=== PATIENT | female | born 1975 | race Caucasian/White ===

== ENCOUNTER 2018-06-01 08:27 | Inpatient (IN) ==
[2018-06-01] MEDS ORDERED: Metoprolol Tartrate 25 MG Tablet PO SCH (08:57)
[2018-06-01] MEDS ORDERED: Chlorhexidine Gluconate 2% 1 Pack (2 Cloths) TOPICAL SCH (08:57)
[2018-06-01] MEDS ORDERED: Sodium Chlor 0.9% Inj 500 ML IV.SIG SCH (09:00)
[2018-06-01] MEDS ORDERED: ceFAZolin 2 GM Premix Inj 2 GM/100 ML BAG IV.SIG ONE (09:07)
[2018-06-01] MEDS ORDERED: Famotidine PF Inj 20 MG/2 ML Vial ONE (09:32)
[2018-06-01 09:34] LABS: Baso # (Auto) 0.1 th/mm3 (0.0-0.2); Eos % (Auto) 0.5 % (0.0-4.0); Hematocrit 27.8 % (35.0-46.0); Hemoglobin 8.6 gm/dL (11.6-15.3); Lymph # (Auto) 0.9 th/mm3 (1.0-4.8); Mean Corpuscular HGB Conc 31.1 % (32.0-36.0); Mean Corpuscular Hemoglobin 22.3 pg (27.0-34.0); Mean Corpuscular Volume 71.6 fL (80.0-100.0); Mean Platelet Volume 8.2 fL (7.0-11.0); Mono # (Auto) 0.4 th/mm3 (0.0-0.9); Mono % (Auto) 7.5 % (0.0-8.0); Neut # (Auto) 3.8 th/mm3 (1.8-7.7); Platelet Count 369 th/mm3 (150-450); Red Blood Count 3.88 mil/mm3 (4.00-5.30); Red Cell Distribution Width 15.8 % (11.6-17.2); White Blood Count 5.1 th/mm3 (4.0-11.0)
[2018-06-01 09:50] LABS: Calcium 8.9 mg/dL (8.5-10.1); Carbon Dioxide 22.6 meq/L (21.0-32.0); Potassium 3.7 meq/L (3.5-5.1)
[2018-06-01] MEDS ORDERED: ceFAZolin 2 GM/NS 100 ML IV IV.SIG SCH ×2 (10:00)
[2018-06-01] MEDS ORDERED: Bupivacaine/Epinephrine Inj 0.25% 50 ML Vial ONE (10:19)
[2018-06-01] MEDS ORDERED: Neostigmine Inj 5 MG/5 ML Syringe IV.PUSH ONE (10:38)
[2018-06-01] MEDS ORDERED: Lidocaine PF 1% Inj 5 ML Syringe INFILTRATN ONE (10:38)
[2018-06-01] MEDS ORDERED: Glycopyrrolate Inj 1 MG/5 ML Syringe IV.PUSH ONE (10:38)
[2018-06-01] MEDS ORDERED: Succinylcholine Inj 100 MG/5 ML Syringe IV.PUSH ONE (10:38)
[2018-06-01] MEDS ORDERED: Levofloxacin 500 mg Premix Inj 500 MG/100 ML PIGGYBACK IV.SIG ONE (11:13)
[2018-06-01] MEDS ORDERED: Bupivacaine PF 0.5% Inj 30 ML Vial ONE (13:13)
[2018-06-01] MEDS ORDERED: Bupivacaine Liposomal PF 1.3% Inj 20 ML Vial ONE (13:14)
--- NOTE | 2018-06-01 13:52 | MP ---
cc: Vasu Chiang MD DATE OF OPERATION: 06/01/2018 DATE OF PROCEDURE: 06/01/2018 PREOPERATIVE DIAGNOSIS: Sigmoid colon cancer. POSTOPERATIVE DIAGNOSIS: Sigmoid colon cancer. PROCEDURE PERFORMED: Rigid sigmoidoscopy. SURGEON: Vasu Chiang MD ANESTHESIA: General endotracheal. COMPLICATIONS: None. INDICATIONS FOR PROCEDURE: Ms. Kebede is a very pleasant 43-year-old female; reports she has sigmoid colon cancer. She is undergoing a laparoscopic-assisted low anterior resection by Dr. Krunal Milian. He asked me to perform a rigid sigmoidoscopy to assist with the anastomosis. Please see Dr. Milian's note for the dictation regarding the laparoscopic procedure. DETAILS OF PROCEDURE: The patient was in the operating room with Dr. Milian under general anesthesia. She was in the lithotomy position with stirrups. The perineum was inspected. No gross abnormalities were noted other than some minor external hemorrhoids. Finger digital exam of the rectum revealed no palpable masses. Rigid sigmoidoscope was then inserted and insufflated with air. We went all the way up to the staple line where Dr. Milian had transected the sigmoid colon. The staple line was intact without any evidence of bleeding. There was a small amount of liquid stool within the rectal vault, which was suctioned out. Once we did this, we removed it. An 29 EEA was introduced and then gently brought up into the staple line area where Dr. Milian could feel it. The spike was then deployed and it was attached to the anvil. It was then retracted back with the orange marker within the green zone. The stapler was then fired and held in place for 10 seconds. The stapler was then removed without any difficulty. Staple was checked and there were two intact donuts circumferentially. The rigid sigmoidoscope was then reintroduced. Using direct insufflation, we were able to go up and visualize the staple line. There was a small amount of oozing noted, but no gross bleeding. Dr. Milian checked the staple lines internally. There was no evidence of air bubble leakage. The rigid sigmoidoscope was then removed. I then left the room and left the care of the patient of Dr. Krunal Milian. Please see his operative note for details. Vasu MD SAGAR Acevedo/rusty , 01:14 PM , 01:20 PM
[2018-06-01] MEDS ORDERED: Naloxone Inj 0.4 MG/ML Vial IV.PUSH PRN ×2 (14:06→14:10)
[2018-06-01] MEDS ORDERED: Post-op Orders (for Pharmacy) OTHER ONE (14:06)
[2018-06-01] MEDS ORDERED: Bisacodyl 10 MG Supp RECTAL PRN (14:06)
[2018-06-01] MEDS ORDERED: HYDROmorphone PCA Inj 6 MG/30 ML PCA.VIAL PCA PRN (14:10)
[2018-06-01] MEDS ORDERED: *morphine SULFATE 4 MG/ML PERIprocedure ONLY ONE ×2 (14:12→14:20)
[2018-06-01] MEDS ORDERED: fentaNYL Citrate Inj 100 MCG/2 ML Ampul ONE ×2 (14:29)
[2018-06-01] MEDS ORDERED: Morphine Inj 4 MG/ML Vial ONE (14:30)
[2018-06-01] MEDS: Pantoprazole Inj 40 MG Vial IV.PUSH SCH (16:31)
--- NOTE | 2018-06-01 20:16 | MP ---
cc: Krunal Milian MD, Harry MD DATE OF OPERATION: 06/01/2018 PREOPERATIVE DIAGNOSIS: Colon cancer, mid sigmoid colon. POSTOPERATIVE DIAGNOSIS: Colon cancer, mid sigmoid colon. PROCEDURE PERFORMED: Laparoscopic-assisted sigmoid low anterior resection for colon cancer. ANESTHESIA: General. SURGEON: Krunal Milian MD WARP TRUCKER: Vasu Chiang MD INDICATIONS: This is a 43-year-old female who has had some abdominal discomforts recently had a colonoscopy by Dr. Anderson, finding a sigmoid adenocarcinoma. Plans were made for above. DESCRIPTION OF PROCEDURE: The patient was taken to the operating room and placed in supine position. After anesthesia, her abdomen was prepped with Betadine. She was in the stirrups in modified lithotomy position. Timeout was done. She was given preoperative antibiotics. She had an adequate prep for her colonoscopy and for this procedure. She was given and Entereg preoperatively as well. We made a horizontal incision in the left lower quadrant and dissected down through Waldo fascia down to the anterior abdominal wall fascia, which was incised in a horizontal fashion. A portion of the rectus muscle fibers was split. The GelPort was then placed. A 5 mm port was placed in the right lower quadrant and a 5 mm in the umbilicus on the left side. We could palpate the tumor in the midsigmoid area through our GelPort site. We were able to dissect with laparoscopic assistance the mesentery down with the Harmonic scalpel all the way down to the peritoneal reflection. We were able to visualize the ureter quite easily because of the patient's body habitus. We freed up a portion of the distal colon. Once this was freed up, we then did some dissection through the GelPort. We were able to get about 8 cm proximal to the tumor and this was using the GI stapling device. Harmonic scalpel was then used to mobilize the mesentery all the way down to the root of the mesentery and the left colic vessels. The large vessels were then tied off with 0 Vicryl ties. We dissected all the way down to the mesentery, clamping and tying with Vicryl ties. On the smaller vessels, we used the Harmonic scalpel. Once this was freed all the way up to the peritoneal reflection, we were able use the contour stapler and separate the colon. With this, we had about 8-9 cm distal margins and 8 cm proximal. It was marked with a suture at the proximal end and passed off the field. We then used the sizers and used a 29 sizer in the proximal bowel. The staple line was removed. There was a good adequate blood supply. We then placed the anvil to the EEA stapling device #29 and stitched this in with a 3-0 Prolene. The anvil was then brought down to the pelvis with no tension. Dr. Chiang went down below and did a rigid sigmoidoscopy. See his separate operative note. The staple line could be seen. It was intact on the distal segment. Using the EEA, right through the staple line, we connected the anvil to the EEA stapler and this was fired in the typical fashion. Dr. Chiang checked the donuts and there were adequate donut margins. We then filled the pelvis with air and Dr. Chiang did a rigid sigmoidoscopy up to the anastomosis and could see the staple lines and pumped in some air and there was no leakage circumferentially. This air was then removed. We then draped the omentum down around the anastomosis. We did visualize and palpate the liver with a hand through the GelPort and also visually with the camera. I did not see any surface lesions. It was noted that her uterus was normal. Right and left ovary were normal. Her appendix was normal. The cecum appeared normal as well. No other growth pathology seen. The trocars were removed. The GelPort was removed. The peritoneum was closed with a 3-0 Vicryl and then the fascia was reapproximated with a #1 PDS in a running fashion. The skin at all 3 sites was then closed with a 4-0 Vicryl. The YOUSUF dressing was applied to the larger wound and Band-Aids to the smaller wounds. The patient tolerated the procedure well. Estimated blood loss was less than 30 mL. Returned to the recovery room without any immediate postop complications. MD MARGOTH Gould/juanis , 04:47 PM , 04:59 PM
[2018-06-01] MEDS ORDERED: Senna/Docusate Sodium 8.6/50 MG Tablet PO SCH (21:00)
[2018-06-02] MEDS: Pantoprazole Inj 40 MG Vial IV.PUSH SCH (15:28)
--- NOTE | 2018-06-02 18:24 | P.PNGS ---
Subjective Patient reports: feels better, pain is less, no flatus, no bowel movement Physical Exam Vital signs: Vital Signs 06/01/18 20:00 06/02/18 00:00 06/02/18 04:00 Temperature 97.7 F 97.6 F 98.0 F Pulse Rate 55 L 69 74 Respiratory Rate 16 16 16 Blood Pressure 108/57 L 104/58 L 108/59 L Pulse Oximetry 100 100 100 06/02/18 08:00 06/02/18 12:00 06/02/18 16:00 Temperature 97.3 F L 97.8 F 97.7 F Pulse Rate 70 62 84 Respiratory Rate 17 17 17 Blood Pressure 110/52 L 105/51 L 102/52 L Pulse Oximetry 100 100 100 Intake & Output 06/01/18 06/02/18 06/02/18 18:59 06:59 18:59 Intake Total 2500 / 2500 1480 / 1480 1000 / 1000 Output Total 500 / 500 1750 / 1750 Balance 1999 / 1999 -270 / -270 1000 / 1000 Weight 67 kg 67.2 kg Intake: IV 1000 / 1000 1000 / 1000 LR 1000 mL Inj 1,000 ML @ 100 1000 / 1000 1000 / 1000 mls/hr IV.CONT .Q10H [facility] Rx#: [id number] LR 1000 mL Inj 1,000 ML @ 30 0 / 0 mls/hr IV.SIG .Q24H [facility] Rx#: [id number] Oral 0 / 0 480 / 480 Anesthesia Amount 2500 / 2500 Output: Urine 1750 / 1750 Estimated Blood Loss 50 / 50 Urine Amount (Catheter) 450 / 450 Indwelling Urethral Catheter 450 / 450 Other: Weight On Admission 60.9 kg - Constitutional no acute distress - Routine Respiratory Exam Present: CTA bilaterally - Routine Cardiovascular Exam Present: RRR - Routine Abdominal Exam Present: soft Comments: postop pain, inc c/d/i - Urinary Catheter Management Indwelling Urethral Catheter Cath placed during this visit: yes Reason for continuing: Hourly intake/output Insertion date: 06/01/18 Assessment and Plan - Assessment (1) Colonic obstruction Code(s): K56.609 - Unspecified intestinal obstruction, unspecified as to partial versus complete obstruction Status: Acute - Plan 43yo female s/p lap assisted sigmoid colectomy, stable. 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
[2018-06-03] MEDS: Pantoprazole Inj 40 MG Vial IV.PUSH SCH (15:24)
--- NOTE | 2018-06-03 17:06 | P.PN ---
Subjective Interval history: Some nausea today; tolerating clear liquids Physical Exam Vital signs: Vital Signs 06/02/18 20:00 06/03/18 00:00 06/03/18 04:00 Temperature 98 F 97.9 F 97.9 F Pulse Rate 108 H 80 75 Respiratory Rate 20 18 18 Blood Pressure 103/64 100/55 L 107/55 L Pulse Oximetry 100 97 98 06/03/18 08:00 06/03/18 12:00 Temperature 97.9 F 97.7 F Pulse Rate 95 H 90 Respiratory Rate 17 17 Blood Pressure 112/58 L 105/56 L Pulse Oximetry 98 98 Intake & Output 06/02/18 06/03/18 06/03/18 18:59 06:59 18:59 Intake Total 2300 / 2300 2000 / 2000 1000 / 1000 Output Total 6450 / 6450 1450 / 1450 300 / 300 Balance -4150 / -4150 550 / 550 700 / 700 Weight 69.2 kg Intake: IV 1000 / 1000 2000 / 2000 1000 / 1000 LR 1000 mL Inj 1,000 ML @ 100 1000 / 1000 2000 / 2000 1000 / 1000 mls/hr IV.CONT .Q10H [facility] Rx#: [id number] LR 1000 mL Inj 1,000 ML @ 30 0 / 0 mls/hr IV.SIG .Q24H [facility] Rx#: [id number] Oral 1300 / 1300 Output: Urine 6450 / 6450 300 / 300 Urine Amount (Catheter) 1450 / 1450 Indwelling Urethral Catheter 1450 / 1450 - Constitutional no acute distress - Routine Respiratory Exam Present: CTA bilaterally - Routine Abdominal Exam Present: soft, wound (Dressing clean and dry; mariano intact with good suction) - Urinary Catheter Management Indwelling Urethral Catheter Cath placed during this visit: yes, but has since been removed by the nurse Reason for continuing: Not indwelling catheter Insertion date: 06/01/18 Removal date: 06/03/18 Removal time: 06:30 Results - Labs CBC & Chem 7: 06/01/18 09:20 06/01/18 09:20 Assessment and Plan - Assessment (1) Colonic obstruction Code(s): K56.609 - Unspecified intestinal obstruction, unspecified as to partial versus complete obstruction Status: Acute Plan: Advance to full liquid diet; continue ITALIAN TUTOR and add oral pain medicine. Patient encouraged to transition in the next day or so to oral pain meds. Await return of bowel function. - Plan Discussed Condition With: Patient Nurse Robe - Attending Attestation I attest that I had a [id number] encounter with the patient on the same day, and personally performed and documented my assessment and findings in the medical record. The following services were provided during this hospital visit: Chart data review, vital sign assessments/reviewing monitor data Review of consultation notes if present Medication orders/review and/or management Ordering and/or reviewing lab tests Ordering and/or interpreting/reviewing x-rays and/or diagnostic studies Care of the patient and discussion of the patient with the care team Documentation time To help prompt me to consider important information that might be impacting today's encounter and assessment, Information from prior notes written by myself or my colleagues may have been "brought forward/copy and pasted" into today's note.
--- NOTE | 2018-06-04 11:47 | P.PNGS ---
Subjective Patient reports: feels better, flatus Interval history: DAILY PROGRESS NOTE FOR SURGICAL ATTENDING, DR. BRANDO MONTEZ Passing flatus Wants more to eat wants her anxiety medicine adjusted Pain control adequate Physical Exam Vital signs: Vital Signs 06/03/18 12:00 06/03/18 16:00 06/03/18 20:00 Temperature 97.7 F 98.7 F 97.9 F Pulse Rate 90 89 89 Respiratory Rate 17 17 20 Blood Pressure 105/56 L 102/66 112/58 L Pulse Oximetry 98 98 97 06/04/18 00:00 06/04/18 04:00 06/04/18 11:39 Temperature 98.1 F 97.9 F 98.1 F Pulse Rate 79 72 74 Respiratory Rate 18 18 19 Blood Pressure 119/69 107/65 112/63 Pulse Oximetry 97 98 100 Intake & Output 06/03/18 06/04/18 06/04/18 18:59 06:59 18:59 Intake Total 1050 / 1050 1480 / 1480 0 / 0 Output Total 300 / 300 1750 / 1750 Balance 750 / 750 -270 / -270 0 / 0 Weight 66.3 kg Intake: IV 1050 / 1050 1000 / 1000 0 / 0 LR 1000 mL Inj 1,000 ML @ 84 1050 / 1050 1000 / 1000 mls/hr IV.CONT .[id number] [facility] Rx# :[id number] LR 1000 mL Inj 1,000 ML @ 30 0 / 0 mls/hr IV.SIG .Q24H [facility] Rx#: [id number] Oral 480 / 480 Output: Urine 300 / 300 1750 / 1750 Narrative: Patient alert oriented sitting up in bed Abdomen soft mild soreness left lower quadrant mariano dressing intact Moves all extremities well ambulating in room and ho - Additional findings Additional findings: Laboratory Last Values WBC 5.1 th/mm3 (4.0-11.0) 06/01/18 09:20 RBC 3.88 mil/mm3 (4.00-5.30) L 06/01/18 09:20 Hgb 8.6 gm/dL (11.6-15.3) L 06/01/18 09:20 Hct 27.8 % (35.0-46.0) L 06/01/18 09:20 MCV 71.6 fL (80.0-100.0) L 06/01/18 09:20 MCH 22.3 pg (27.0-34.0) L 06/01/18 09:20 MCHC 31.1 % (32.0-36.0) L 06/01/18 09:20 RDW 15.8 % (11.6-17.2) 06/01/18 09:20 Plt Count 369 th/mm3 (150-450) 06/01/18 09:20 MPV 8.2 fL (7.0-11.0) 06/01/18 09:20 Neut % (Auto) 74.0 % (16.0-70.0) H 06/01/18 09:20 Lymph % (Auto) 17.0 % (9.0-44.0) 06/01/18 09:20 [place] % (Auto) 7.5 % (0.0-8.0) 06/01/18 09:20 Eos % (Auto) 0.5 % (0.0-4.0) 06/01/18 09:20 Baso % (Auto) 1.0 % (0.0-2.0) 06/01/18 09:20 Neut # (Auto) 3.8 th/mm3 (1.8-7.7) 06/01/18 09:20 Lymph # (Auto) 0.9 th/mm3 (1.0-4.8) L 06/01/18 09:20 [place] # (Auto) 0.4 th/mm3 (0.0-0.9) 06/01/18 09:20 Eos # (Auto) 0.0 th/mm3 (0.0-0.4) 06/01/18 09:20 Baso # (Auto) 0.1 th/mm3 (0.0-0.2) 06/01/18 09:20 WBC Differential . 06/01/18 09:20 Differential Comment Auto diff final 06/01/18 09:20 Sodium 139 meq/L (136-145) 06/01/18 09:20 Potassium 3.7 meq/L (3.5-5.1) 06/01/18 09:20 Chloride 104 meq/L (98-107) 06/01/18 09:20 Carbon Dioxide 22.6 meq/L (21.0-32.0) 06/01/18 09:20 Anion Gap 12 meq/L (5-15) 06/01/18 09:20 BUN 11 mg/dL (7-18) 06/01/18 09:20 Creatinine 0.71 mg/dL (0.50-1.00) 06/01/18 09:20 Estimated GFR 89 mL/min (>89) 06/01/18 09:20 Random Glucose 76 mg/dL (74-106) 06/01/18 09:20 Calcium 8.9 mg/dL (8.5-10.1) 06/01/18 09:20 Blood Type O Positive 06/01/18 09:20 Antibody Screen Negative 06/01/18 09:20 MTS Gel Crossmatch See Detail 06/01/18 09:20 Bld Prod Order Comment 06/01/18 09:20 - Urinary Catheter Management Indwelling Urethral Catheter Cath placed during this visit: yes, but has since been removed by the nurse Reason for continuing: Not indwelling catheter Insertion date: 06/01/18 Removal date: 06/03/18 Removal time: 06:30 Assessment and Plan - Assessment (1) Colonic obstruction Code(s): K56.609 - Unspecified intestinal obstruction, unspecified as to partial versus complete obstruction Status: Acute (2) Cancer of sigmoid colon Code(s): C18.7 - Malignant neoplasm of sigmoid colon Status: Acute (3) S/P partial resection of colon Code(s): Z90.49 - Acquired absence of other specified parts of digestive tract Status: Acute - Plan 43-year-old female status post laparoscopic hand-assisted sigmoid resection for colon cancer Doing well Adjust pain medication to p.o. adjust antianxiety medicine Advance diet as tolerated Anticipate discharge on Monday - Attending Attestation NOTE FOR SURGICAL ATTENDING, DR. BRANDO MONTEZ I agree with above assessment and plan. The exam, history, and the medical decision-making described in the above note were completed with the assistance of the mid-level provider. I reviewed and agree with the findings presented. I attest that I had a [id number] encounter with the patient on the same day, and personally performed and documented my assessment and findings in the medical record. The following services were provided during this hospital visit: Chart data review, vital sign assessments/reviewing monitor data Review of consultations notes if present. Medication orders/review and/or management Ordering and/or reviewing lab tests Ordering and/or interpreting/reviewing x-rays and/or diagnostic studies Care of the patient and discussion of the patient with the care team Documentation time To help prompt me to consider important information that might be impacting today's encounter and assessment, Information from prior notes written by myself or my colleagues may have been "brought forward/copy and pasted" into today's note.
[2018-06-04] MEDS ORDERED: diazePAM 5 MG Tablet PO PRN (12:10)
[2018-06-04] MEDS: Pantoprazole Inj 40 MG Vial IV.PUSH SCH (14:35)
[2018-06-04 14:43] VITALS: RESP 18
[2018-06-04] MEDS ORDERED: HYDROmorphone PF Inj 2 MG/ML Vial IV.PUSH PRN (15:32)
--- NOTE | 2018-06-05 09:51 | P.PNGS ---
Subjective Interval history: DAILY PROGRESS NOTE FOR SURGICAL ATTENDING, DR. BRANDO MONTEZ Resting in bed at bedside Would like to take a shower Physical Exam Vital signs: Vital Signs 06/04/18 11:39 06/04/18 14:43 06/04/18 20:00 Temperature 98.1 F 97.5 F L 97.8 F Pulse Rate 74 93 H 79 Respiratory Rate 19 18 18 Blood Pressure 112/63 112/61 119/58 L Pulse Oximetry 100 94 L 99 06/05/18 00:00 Temperature 98 F Pulse Rate 63 Respiratory Rate 18 Blood Pressure 106/51 L Pulse Oximetry 99 Intake & Output 06/04/18 06/05/18 06/05/18 18:59 06:59 18:59 Intake Total 1000 / 1000 Balance 1000 / 1000 Intake: IV 1000 / 1000 LR 1000 mL Inj 1,000 ML @ 84 1000 / 1000 mls/hr IV.CONT .[id number] [facility] Rx# :[id number] LR 1000 mL Inj 1,000 ML @ 30 0 / 0 mls/hr IV.SIG .Q24H [facility] Rx#: [id number] Other: # Voids 1 Narrative: Alert and awake Abd: soft; YOUSUF in place with good seal; mildly tender to palpation - Additional findings Additional findings: TUMOR SITE: SIGMOID COLON. TUMOR SIZE: GREATEST DIMENSION: 2.7 CM. MACROSCOPIC TUMOR PERFORATION: NOT IDENTIFIED. HISTOLOGIC TYPE: ADENOCARCINOMA. HISTOLOGIC GRADE: GRADE 2 (MODERATELY DIFFERENTIATED). TUMOR EXTENSION: TUMOR INVADES THROUGH MUSCULARIS PROPRIA INTO PERICOLORECTAL TISSUE. MARGINS: ALL MARGINS ARE UNINVOLVED BY INVASIVE CARCINOMA, HIGH GRADE DYSPLASIA, INTRAMUCOSAL ADENOCARCINOMA AND ADENOMA. MARGINS EXAMINED: PROXIMAL, DISTAL, AND RADIAL. TREATMENT EFFECT: NO KNOWN PRESURGICAL THERAPY. LYMPHOVASCULAR INVASION: NOT IDENTIFIED. PERINEURAL INVASION: NOT IDENTFIED. TUMOR DEPOSITS: NOT IDENTIFIED. REGIONAL LYMPH NODES: NUMBER OF LYMPH NODES INVOLVED: 0 NUMBER OF LYMPH NODES EXAMINED: 13 PATHOLOGIC STAGE CLASSIFICATION (pTNM, AJCC 8th Edition): PRIMARY TUMOR: pT3. REGIONAL LYMPH NODES: pN0. 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 BRANDO MONTEZ Patient seen at the bedside Reviewed pathology report with the patient Gave her a copy of the pathology report Plan for discharge tomorrow as long as she continues to progress I agree with above assessment and plan. The exam, history, and the medical decision-making described in the above note were completed with the assistance of the mid-level provider. I reviewed and agree with the findings presented. I attest that I had a [id number] encounter with the patient on the same day, and personally performed and documented my assessment and findings in the medical record. The following services were provided during this hospital visit: Chart data review, vital sign assessments/reviewing monitor data Review of consultations notes if present. Medication orders/review and/or management Ordering and/or reviewing lab tests Ordering and/or interpreting/reviewing x-rays and/or diagnostic studies Care of the patient and discussion of the patient with the care team Documentation time To help prompt me to consider important information that might be impacting today's encounter and assessment, Information from prior notes written by myself or my colleagues may have been "brought forward/copy and pasted" into today's note.
[2018-06-05] MEDS: diazePAM 5 MG Tablet PO PRN ×2 (10:00→21:08)
[2018-06-05] MEDS: Pantoprazole Inj 40 MG Vial IV.PUSH SCH (15:29)
[2018-06-05] MEDS: Docusate Sodium 100 MG Capsule PO SCH (21:08)
[2018-06-06] MEDS: Docusate Sodium 100 MG Capsule PO SCH (09:15)
[2018-06-06] MEDS: diazePAM 5 MG Tablet PO PRN (09:16)
[2018-06-06 12:59] VITALS: BP 104/62; PULSE 76; TEMP 98.2; O2SAT 98
--- NOTE | 2018-06-06 14:41 | P.DS ---
<Any Leo - Last Filed: 06/06/18 14:37> Date of admission: 06/01/18 14:06 Primary care physician: PROVIDER NON STAFF Attending physician on discharge: Krunal Milian Anticipated date of discharge: 06/06/18 Brief History from admission: 43 year old female POD4 laparoscopic hand assisted sigmoid resection for colon cancer DS: Diagnosis - Discharge Diagnosis (1) Colonic obstruction Status: Acute (2) Cancer of sigmoid colon Status: Acute (3) S/P partial resection of colon Status: Acute DS: Medications - Discharge Medications Prescriptions: hydrocodone-acetaminophen 1 tab PO Q4H PRN #15 tab PRN Reason: acute post op pain excpetion DS: Summary Hospital Course: This is a 43 year old female POD4 laparoscopic hand assisted sigmoid resection for colon cancer. She has recovered well from surgery. Her pain is well controlled using oral pain medications. She was restarted on her oral anxiety medications. She was able to tolerate a regular diet. The YOUSUF was removed prior to DC. She will follow up in the office next . - Time Spent with Patient Total time spent providing and/or coordinating discharge services: Less than 30 minutes - Quality: VTE Deep Vein Thrombosis/Pulmonary Embolism Present on Admission: No Exam Vital signs: Vital Signs 06/05/18 16:00 06/05/18 20:00 06/06/18 00:00 Temperature 98.2 F 97.2 F L 97.9 F Pulse Rate 74 77 89 Respiratory Rate 18 18 18 Blood Pressure 101/64 113/70 106/60 Pulse Oximetry 97 98 96 06/06/18 08:00 06/06/18 12:00 Temperature 97.8 F 98.2 F Pulse Rate 87 76 Respiratory Rate 18 18 Blood Pressure 102/69 104/62 Pulse Oximetry 100 98 Intake & Output 06/05/18 06/06/18 06/06/18 18:59 06:59 18:59 Intake Total 1200 / 1200 Balance 1200 / 1200 Weight 63.1 kg Intake: Oral 1200 / 1200 Other: # Voids 6 3 Date of Last Bowel Movement 06/05/18 06/05/18 Narrative: Alert and awake Abd: YOUSUF removed; incision c/d/i; lap sites c/d/i; minimal tenderness with palpation Results Procedures completed during hospitalization: 43 year old female POD5 laparoscopic hand assisted sigmoid resection for colon cancer <Krunal Milian - Last Filed: 06/06/18 15:23> Date of admission: 06/01/18 14:06 Primary care physician: PROVIDER NON STAFF DS: Diagnosis - Discharge Diagnosis (1) Cancer of sigmoid colon Status: Acute Diagnosis: Principal (2) Colonic obstruction Status: Acute Diagnosis: Principal (3) S/P partial resection of colon Status: Acute Diagnosis: Principal DS: Summary - Time Spent with Patient Total time spent providing and/or coordinating discharge services: Exam Vital signs: Vital Signs 06/05/18 16:00 06/05/18 20:00 06/06/18 00:00 Temperature 98.2 F 97.2 F L 97.9 F Pulse Rate 74 77 89 Respiratory Rate 18 18 18 Blood Pressure 101/64 113/70 106/60 Pulse Oximetry 97 98 96 06/06/18 08:00 06/06/18 12:00 Temperature 97.8 F 98.2 F Pulse Rate 87 76 Respiratory Rate 18 18 Blood Pressure 102/69 104/62 Pulse Oximetry 100 98 Intake & Output 06/05/18 06/06/18 06/06/18 18:59 06:59 18:59 Intake Total 1200 / 1200 Balance 1200 / 1200 Weight 63.1 kg Intake: Oral 1200 / 1200 Other: # Voids 6 3 Date of Last Bowel Movement 06/05/18 06/05/18 Results Procedures completed during hospitalization: Pathology report noted Discharge Plan - Discharge Order Discharge Orders: Discharge Order (Routine); Ordered 06/06/18 Ordered By: Any Leo - Discharge Details Discharge Comment: rx on chart - Physicians Team Primary Care Provider: NON STAFF,PROVIDER Attending Provider: Krunal Milian Other Providers: ; Surgeons,[facility] - Rxs /Orders / Referrals /Forms Prescriptions: New hydrocodone-acetaminophen 5-325 mg Tablet 1 tab PO Q4H PRN (Reason: acute post op pain excpetion ) Qty: 15 RF: 0 Continue diazepam [Valium] 5 mg Tablet 5 mg PO TID PRN (Reason: Anxiety) Referrals: Krunal Milian MD [Physician] - 06/14/18 10:40 am (Appt set for Jun 14 at 10 :40AM) NON STAFF,PROVIDER [Primary Care Provider] - See Instructions - Discharge Instructions Patient Printed Instructions: Hydrocodone/Acetaminophen (By mouth), Colorectal Cancer (DC), Bowel Resection (DC), Steristrips (ED)
== END 2018-06-06 13:44 | disposition home or self-care (01) ==
LOC: HSDC 08:27 → EDSTATUS 10:30 → HSDI 14:06 → N07 15:30
PROVIDERS: ADMIT Surgery; ATTEND Surgery